=== PATIENT | male | born 1975 | race Caucasian/White ===

== ENCOUNTER 2016-04-06 16:19 | Emergency (ER) | payer OTHER ==
[~2016-04-06] VITALS: Wt 74.5 kg
[~2016-04-06 16:19] MED LIST: BACTDS PO; CEPH-443 PO; IBUP-1542 PO; ULT50 PO
--- NOTE | 2016-04-06 17:44 | ERD ---
ER Documentation Chief Complaint Date/Time DATE: 04/06/16 TIME: 17:42 Chief Complaint WOUND RECHECK ON ABCESS I&D RIGHT AXILA HPI This is a 40-year-old male with a past medical history of MRSA infection presents to the ED for a wound check. Patient hasn't filled his prescription for antibiotics and is taking it consistently. States that the ibuprofen and tramadol is helping with his pain. States that the swelling and redness is improving. Denies any fever, chills, abdominal pain, nausea, vomiting, loss of sensation, loss of range of motion. ROS All systems reviewed and are negative except as per history of present illness. Medications Home Meds Active Scripts Tramadol HCl (Tramadol HCl) 50 Mg Tablet, 50 MG PO Q6 Y for PAIN, #20 TAB Prov:PEDRITO CORDON NP 04/04/16 Ibuprofen* (Motrin*) 600 Mg Tab, 600 MG PO Q6H Y for PAIN AND OR ELEVATED TEMP, #30 TAB Prov:PEDRITO CORDON NP 04/04/16 Cephalexin* (Keflex*) 500 Mg Capsule, 500 MG PO QID for 10 Days, CAP Prov:PEDRITO CORDON NP 04/04/16 Sulfamethoxazole-Trimethoprim* (Bactrim* DS) 800-160 Mg Tab, 1 TAB PO BID for 10 Days, TAB Prov:PEDRITO CORDON NP 04/04/16 Sulfamethoxazole-Trimethoprim* (Bactrim* DS) 800-160 Mg Tab, 1 TAB PO BID for 10 Days, TAB Prov:MONROE MARRUFO PA-C 02/05/16 Allergies Allergies: Coded Allergies: No Known Allergy (Unverified , 02/07/16) PMhx/Soc History of Surgery: Yes (hernia repair) Anesthesia Reaction: No Hx Neurological Disorder: No Hx Respiratory Disorders: Yes (ASTHMA) Hx Cardiac Disorders: No Hx Psychiatric Problems: No Hx Miscellaneous Medical Probl: Yes (HEP B) Hx Alcohol Use: No (DENIES) Hx Substance Use: Yes (meth use LAST 04/03) Hx Tobacco Use: Yes (1/2PACK PER DAY) Physical Exam Vitals Vital Signs Date Time Temp Pulse Resp B/P Pulse Ox O2 Delivery O2 Flow Rate FiO2 04/06/16 16:22 97.4 89 18 147/89 99 Physical Exam Const: [id number], well-nourished. In no acute distress. Head: Atraumatic, normocephalic Eyes: Normal Conjunctiva without injection ENT: Normal external ear, nose and mouth. Neck: Full range of motion. No meningismus. Resp: Clear to auscultation bilaterally. No wheezing, rhonchi, rales, or crackles. No accessory muscle use. No retractions. Cardio: Regular rate and rhythm, no murmurs Skin: No petechiae or rashes Back: No midline tenderness. No CVA tenderness. Ext: No cyanosis, or edema. 2 cm x 2 cm erythema with no induration and fluctuance with a 1 cm incision of right axilla. No packing noted as patient removed it. No purulent discharge. No lymphatic streaking. Cap refill less than 2 seconds. Distal pulses intact bilaterally. Neur: Awake and alert. Normal gait and coordination. Muscle strength 5/5. Sensation intact bilaterally. Psych: Normal Mood and Affect Procedures/MDM This is a 40-year-old male with a past history of MRSA infection presents the ED for a wound check. Patient is afebrile and nontoxic-appearing. Patient has normal vital signs. Patient's abscess is healing appropriately. No indication for repacking at this time. Low suspicion for sepsis, cellulitis, necrotizing fascitis, or other emergent conditions. Follow up with primary care physician in 1-2 days. Instructed patient to return to the ED sooner for any worsening symptoms. Patient's questions were answered. Patient understood and agreed with discharge plan. Patient discharged stable. Departure Diagnosis: Primary Impression: Encounter for wound re-check Condition: Stable Patient Instructions: Abscess Drainage Referrals: MELISSA AUSTIN (PCP) [facility] YOU HAVE RECEIVED A MEDICAL SCREENING EXAM AND THE RESULTS INDICATE THAT YOU DO NOT HAVE A CONDITION THAT REQUIRES URGENT TREATMENT IN THE EMERGENCY DEPARTMENT. FURTHER EVALUATION AND TREATMENT OF YOUR CONDITION CAN WAIT UNTIL YOU ARE SEEN IN YOUR DOCTORS OFFICE WITHIN THE NEXT 1-2 DAYS. IT IS YOUR RESPONSIBILITY TO MAKE AN APPOINTMENT FOR FOLOW-UP CARE. IF YOU HAVE A PRIMARY DOCTOR --you should call your primary doctor and schedule an appointment IF YOU DO NOT HAVE A PRIMARY DOCTOR YOU CAN CALL OUR PHYSICIAN REFERRAL HOTLINE AT IF YOU CAN NOT AFFORD TO SEE A PHYSICIAN YOU CAN CHOSE FROM THE FOLLOWING [facility] CLINICS [facility] [address] [place] [facility] [address] [place] [facility] [address] [facility] [address] [facility] [address] [facility]. [facility]. [address] [facility] [facility] YOU HAVE RECEIVED A MEDICAL SCREENING EXAM AND THE RESULTS INDICATE THAT YOU DO NOT HAVE A CONDITION THAT REQUIRES URGENT TREATMENT IN THE EMERGENCY DEPARTMENT. FURTHER EVALUATION AND TREATMENT OF YOUR CONDITION CAN WAIT UNTIL YOU ARE SEEN IN YOUR DOCTORS OFFICE WITHIN THE NEXT 1-2 DAYS. IT IS YOUR RESPONSIBILITY TO MAKE AN APPOINTMENT FOR FOLOW-UP CARE. IF YOU HAVE A PRIMARY DOCTOR --you should call your primary doctor and schedule and appointment IF YOU DO NOT HAVE A PRIMARY DOCTOR YOU CAN CALL OUR PHYSICIAN REFERRAL HOTLINE AT . IF YOU CAN NOT AFFORD TO SEE A PHYSICIAN YOU CAN CHOSE FROM THE FOLLOWING [facility] INSTITUTIONS: [facility] [address] [place] [address] [facility] [address] [place] [address] [facility] [address] [place] [address] [facility] URGENT CARE/SPECIALTIES Additional Instructions: FOLLOW UP WITH YOUR PRIMARY CARE PHYSICIAN TOMORROW.Return to this facility if you are not improving as expected. ARNOLDO KURTZ PA-C Apr 06, 2016 17:44
== END 2016-04-06 19:07 | disposition home or self-care (01) ==
LOC: E/R 16:19
DX: Z48.01 Encounter for change or removal of surgical wound dressing (principal); J45.909 Unspecified asthma, uncomplicated; F17.210 Nicotine dependence, cigarettes, uncomplicated
CPT/HCPCS: 99281

== ENCOUNTER 2016-06-13 06:37 | Emergency (ER) | payer OTHER ==
[~2016-06-13] VITALS: Wt 73.6 kg
[~2016-06-13 06:37] MED LIST changes: +TRAM50TA2 PO; -ULT50 PO
[2016-06-13] MEDS ORDERED: CLINDAMYCIN 300 MG INJ IM ONE (08:00)
[2016-06-13] MEDS ORDERED: CLIN-73 PO (08:12)
[2016-06-13] MEDS ORDERED: TRAM50TA2 PO (08:13)
[2016-06-13] MEDS ORDERED: IBUP-1542 PO (08:13)
--- NOTE | 2016-06-13 08:20 | ERD ---
ER Documentation Chief Complaint Date/Time DATE: 06/13/16 TIME: 08:15 Chief Complaint neck swelling for the past few days. no drainage no fevers HPI This is a 40-year-old male that presents to the ER with neck pain for the last 5 days. Patient has a past medical history of recurrent abscesses over the last few months. Patient has developed a new abscess on the back of the neck. Patient states that it is very painful. He did have a fever earlier today and last night. Patient states that he took pain medications and that this helped with the pain. Patient denies any drainage from the abscess. Denies any cough or cold symptoms. He denies any chest pain or shortness of breath. ROS 12 point review of systems was done, all negative except per HPI. Medications Home Meds Active Scripts Ibuprofen* (Motrin*) 600 Mg Tab, 600 MG PO Q6, #30 TAB Prov:BETTINA DEMARCO 06/13/16 Tramadol HCl (Tramadol HCl) 50 Mg Tablet, 50 MG PO Q4 Y for PAIN, #20 TAB Prov:BETTINA DEMARCO 06/13/16 Clindamycin Hcl* (Clindamycin Hcl*) 300 Mg Capsule, 300 MG PO TID for 10 Days, CAP Prov:NILAMBETTINA CAZARES C 06/13/16 Tramadol HCl (Tramadol HCl) 50 Mg Tablet, 50 MG PO Q6 Y for PAIN, #20 TAB Prov:PEDRITO CORDON NP 04/04/16 Ibuprofen* (Motrin*) 600 Mg Tab, 600 MG PO Q6H Y for PAIN AND OR ELEVATED TEMP, #30 TAB Prov:PEDRITO CORDON NP 04/04/16 Cephalexin* (Keflex*) 500 Mg Capsule, 500 MG PO QID for 10 Days, CAP Prov:PEDRITO CORDON NP 04/04/16 Sulfamethoxazole-Trimethoprim* (Bactrim* DS) 800-160 Mg Tab, 1 TAB PO BID for 10 Days, TAB Prov:PEDRITO CORDON NP 04/04/16 Sulfamethoxazole-Trimethoprim* (Bactrim* DS) 800-160 Mg Tab, 1 TAB PO BID for 10 Days, TAB Prov:MONROE MARRUFO PA-C 02/05/16 Allergies Allergies: Coded Allergies: No Known Allergy (Unverified , 02/07/16) PMhx/Soc History of Surgery: Yes (hernia repair) Anesthesia Reaction: No Hx Neurological Disorder: No Hx Respiratory Disorders: Yes (ASTHMA) Hx Cardiac Disorders: No Hx Psychiatric Problems: No Hx Miscellaneous Medical Probl: Yes (HEP B) Hx Alcohol Use: No (DENIES) Hx Substance Use: Yes (meth use LAST 04/03) Hx Tobacco Use: Yes (1/2PACK PER DAY) Smoking Status: Never smoker Physical Exam Vitals Vital Signs Date Time Temp Pulse Resp B/P Pulse Ox O2 Delivery O2 Flow Rate FiO2 06/13/16 06:39 98.6 94 20 154/88 97 Physical Exam GENERAL: The patient is well developed and appropriate for usual state of health , in no apparent distress. HEENT: Atraumatic. NECK: C-spine is soft and supple. There is no cervical lymphadenopathy. CHEST: Clear to auscultation bilaterally. There are no rales, wheezes or rhonchi. HEART: Regular rate and rhythm. No murmurs, clicks, rubs or gallops. NEURO: Alert and oriented. SKIN: There is a 5 cm x 6 cm area of induration on the posterior neck that is erythematous, warm to the touch and tender to palpation. Results 24 hrs Current Medications Medications (Trade) Dose Ordered Sig/Carley Route PRN Reason Start Time Stop Time Status Last Admin Dose Admin Clindamycin Phosphate (Cleocin) 300 mg ONCE ONCE IM 06/13/16 08:00 06/13/16 08:01 DC 06/13/16 07:52 Procedures/MDM This is a 40-year-old male that presents to the ER for an abscess on his neck. Patient has had many abscesses over the last 4 months which have drained on their own. Patient's abscess however is indurated and is not ready for incision and drainage at this time. Because abscess is fairly large and patient did have a fever at home he will be given a shot of clindamycin. Patient got a dose of clindamycin in the ER without any complications. Patient will be sent home with clindamycin. He was told to apply warm compresses to the area. Patient is to follow-up with his primary care doctor within 1-2 days or return to ER sooner if symptoms worsen. My medical decision making was shared with the patient he understands and agrees with plan. Departure Diagnosis: Primary Impression: Abscess Condition: Stable Patient Instructions: Abscess, Antiobiotic Treatment Only Additional Instructions: Call your primary care doctor TOMORROW for an appointment during the next 1-2 days.See the doctor sooner or return here if your condition worsens before your appointment time. BETTINA DEMARCO Jun 13, 2016 08:20
== END 2016-06-13 08:19 | disposition home or self-care (01) ==
LOC: FTE 06:37
DX: L02.11 Cutaneous abscess of neck (principal); J45.909 Unspecified asthma, uncomplicated; F17.210 Nicotine dependence, cigarettes, uncomplicated
CPT/HCPCS: 96372; Z7502; Z7610

== ENCOUNTER 2016-08-22 15:48 | Emergency (ER) | payer OTHER ==
[~2016-08-22] VITALS: Ht 182.9 cm; Wt 78.0 kg
[~2016-08-22 15:48] MED LIST changes: +CLIN-73 PO
[2016-08-22 15:53] VITALS: Ht 182.9 cm; Wt 78.0 kg
[2016-08-22] MEDS ORDERED: DOXY100T20 PO (17:08)
[2016-08-22] MEDS ORDERED: BEN25 PO (17:09)
[2016-08-22] MEDS ORDERED: TR1B60 TOP (17:09)
[2016-08-22] MEDS ORDERED: NAPR-260 PO (17:11)
--- NOTE | 2016-08-22 17:20 | ERD ---
ER Documentation Chief Complaint Date/Time DATE: 08/22/16 TIME: 17:17 Chief Complaint skin rashes and itchiness all over the body HPI Patient is a 40-year-old male with a past medical history of hepatitis B who presents to the ED with a generalized rash that is itchy and slightly painful. Patient states that he used a new soap detergent at home and developed a rash. Never had this type of rash before in the past. He also states that he has multiple "staph infections". He states that he has taken antibiotics in the past. He states that he uses meth amphetamines and other drugs. He denies fever or chills. He denies chest pain, cough, shortness of breath or difficulty breathing. Denies abdominal pain, nausea, vomiting or diarrhea. Denies any other complaints. ROS All systems reviewed and are negative except as per history of present illness. Medications Home Meds Active Scripts Naproxen* (Naprosyn*) 500 Mg Tablet, 500 MG PO BID Y for PAIN AND/OR INFLAMMATION, #30 TAB Prov:DENA TINEO PA-C 08/22/16 Triamcinolone Acetonide (Triamcinolone Acetonide) 0.1% - 60 Ml Lotion, 1 APPLIC TOP BID, #1 BOTTLE Prov:DENA TINEO PA-C 08/22/16 Diphenhydramine Hcl* (Benadryl*) 25 Mg Cap, 25 MG PO Q6, #30 CAP Prov:DENA TINEOC 08/22/16 Doxycycline Hyclate* (Doxycycline Hyclate*) 100 Mg Tablet.dr, 100 MG PO BID for 10 Days, TAB Prov:DENA TINEO-C 08/22/16 Ibuprofen* (Motrin*) 600 Mg Tab, 600 MG PO Q6, #30 TAB Prov:NILAMBETTINA CAZARES 06/13/16 Tramadol HCl (Tramadol HCl) 50 Mg Tablet, 50 MG PO Q4 Y for PAIN, #20 TAB Prov:BETTINA DEMARCO 06/13/16 Clindamycin Hcl* (Clindamycin Hcl*) 300 Mg Capsule, 300 MG PO TID for 10 Days, CAP Prov:NILAMBETTINA CAZARES 06/13/16 Tramadol HCl (Tramadol HCl) 50 Mg Tablet, 50 MG PO Q6 Y for PAIN, #20 TAB Prov:MAHNAZPEDRITO VIRK MOLD SHAKER 04/04/16 Ibuprofen* (Motrin*) 600 Mg Tab, 600 MG PO Q6H Y for PAIN AND OR ELEVATED TEMP, #30 TAB Prov:RILEYPEDRITO CANDELARIO. MOLD SHAKER 04/04/16 Cephalexin* (Keflex*) 500 Mg Capsule, 500 MG PO QID for 10 Days, CAP Prov:PEDRITO CORDON. MOLD SHAKER 04/04/16 Sulfamethoxazole-Trimethoprim* (Bactrim* DS) 800-160 Mg Tab, 1 TAB PO BID for 10 Days, TAB Prov:RILEYISPEDRITO VIRK. MOLD SHAKER 04/04/16 Sulfamethoxazole-Trimethoprim* (Bactrim* DS) 800-160 Mg Tab, 1 TAB PO BID for 10 Days, TAB Prov:MONROE MARRUFO PA-C 02/05/16 Allergies Allergies: Coded Allergies: No Known Allergy (Unverified , 02/07/16) PMhx/Soc History of Surgery: Yes (hernia repair) Anesthesia Reaction: No Hx Neurological Disorder: No Hx Respiratory Disorders: Yes (ASTHMA) Hx Cardiac Disorders: No Hx Psychiatric Problems: No Hx Miscellaneous Medical Probl: Yes (HEP B) Hx Alcohol Use: No (DENIES) Hx Substance Use: Yes (meth use LAST 04/03) Hx Tobacco Use: Yes (1/2PACK PER DAY) Smoking Status: Current every day smoker Physical Exam Vitals Vital Signs Date Time Temp Pulse Resp B/P Pulse Ox O2 Delivery O2 Flow Rate FiO2 08/22/16 15:53 98.4 75 19 139/76 100 Physical Exam GENERAL: Well-developed, well-nourished male. Appears in no acute distress. HEAD: Normocephalic, atraumatic. EYES: Pupils are equally reactive bilaterally. EOMs grossly intact. No conjunctival erythema. ENT: Moist mucous membranes. No uvula deviation. No kissing tonsils. No exudates. NECK: Supple. No lymphadenopathy or thyromegaly. No meningismus. negative kernig. negative brudinski. LUNG: Clear to auscultation bilaterally. No rhonchi, wheezing, rales or coarse breath sounds. HEART: Regular rate and rhythm. No murmurs, rubs or gallops. Extremities: Equal pulses bilaterally. No peripheral clubbing, cyanosis or edema. No unilateral leg swelling. NEUROLOGIC: Alert and oriented. Moving all four extremities. 5/5 strength in all extremities. Normal speech. Steady gait. SKIN: Normal color. Warm and dry. Multiple erythematous rash on abdomen, legs and arms. No wheals. No streaking. Multiple crusted lesions on back neck and arms. Multiple track mejia visible. No warmth or edema. Capillary refill < 2 seconds Procedures/MDM ER COURSE: I kept the patient and/or family informed of laboratory and diagnostic imaging results throughout the emergency room course. MEDICAL DECISION MAKING: This is a 40-year-old male who presents with rash. Vital signs were reviewed. Patient is afebrile. Patient is not hypoxic. Patient is not toxic or ill- appearing. Patient likely has rash of unknown etiology, likely allergic reaction due to the change in soap. Patient also has multiple crusted over lesions likely early cellulitis. Low suspicion for necrotizing fasciitis, SJS, toxic epidermal necrolysis, Kawasaki, erythema multiforme, gangrene, scarlet fever, meningococcemia, sepsis, anaphylaxis, sepsis, deep space infection, or foreign body. At this point I do not think patient needs to be admitted or to receive IV antibiotics. DISCHARGE: At this time, patient is stable for discharge and outpatient management with no new complaints during the ER course. Patient was sent home with doxycycline, Benadryl, Naprosyn and triamcinolone cream. Patient will be discharged home with instructions to recheck for new or worsening symptoms such as fever, nausea , weakness, LOC and to follow up with primary care in the next 1-2 days. Patient was advised to return to the ER for any new or worsening symptoms. Plan was discussed and patient and/or family understands and agrees. Home instructions were given. Departure Diagnosis: Primary Impression: Rash Condition: Stable Patient Instructions: Self-Care for Skin Rashes, Treating Drug Abuse and Addiction Additional Instructions: Call your primary care doctor TOMORROW for an appointment during the next 1-2 days.See the doctor sooner or return here if your condition worsens before your appointment time. DENA TINEO PA-C August 22, 2016 17:20
== END 2016-08-22 17:17 | disposition home or self-care (01) ==
LOC: FTE 15:48
DX: R21 Rash and other nonspecific skin eruption (principal); J45.909 Unspecified asthma, uncomplicated; F17.210 Nicotine dependence, cigarettes, uncomplicated
CPT/HCPCS: 99284

== ENCOUNTER 2016-09-29 14:17 | Emergency (ER) | payer OTHER ==
[~2016-09-29] VITALS: Wt 72.5 kg
[~2016-09-29 14:17] MED LIST changes: +BEN25 PO; +DOXY100T20 PO; +NAPR-260 PO; +TR1B60 TOP
[2016-09-29] MEDS ORDERED: SULF1TAB31 PO (14:52)
[2016-09-29] MEDS ORDERED: MUPI22OI2 TOP (14:52)
[2016-09-29] MEDS ORDERED: CEPH-443 PO (14:52)
--- NOTE | 2016-09-29 15:24 | ERD ---
ER Documentation Chief Complaint Date/Time DATE: 09/29/16 TIME: 15:21 Chief Complaint RASH, BLISTERS, ABCESS ON CHEST/NECK/ARMS, ONSET SEVERAL YEARS HPI 41-year-old male with history of multiple staph infections, due to drug abuse comes to emergency room with multiple areas of erythema, and "staph infection". He states that he has been treated multiple times, the last time was about 4- 5 months ago. The last time he was seen he was prescribed doxycycline. He also states that most of the time he has responded to antibiotics, is not been hospitalized recently. He denies any fevers or chills. ROS All systems reviewed and are negative except as per history of present illness. Medications Home Meds Active Scripts Sulfamethoxazole/Trimethoprim* (Bactrim Ds* Tablet) 1 Each Tablet, 1 TAB PO BID , #20 TAB Prov:MARLENI TROY PA-C 09/29/16 Mupirocin* (Bactroban*) 2% -22 Gram Oint...g., 1 APPLIC TOP BID for 7 Days, EA Prov:MARLENI TROY PA-C 09/29/16 Cephalexin* (Keflex*) 500 Mg Capsule, 500 MG PO QID for 10 Days, CAP Prov:MARLENI TROY PA-C 09/29/16 Naproxen* (Naprosyn*) 500 Mg Tablet, 500 MG PO BID Y for PAIN AND/OR INFLAMMATION, #30 TAB Prov:DENA TINEO PA-C 08/22/16 Triamcinolone Acetonide (Triamcinolone Acetonide) 0.1% - 60 Ml Lotion, 1 APPLIC TOP BID, #1 BOTTLE Prov:DNEA TINEO PA-C 08/22/16 Diphenhydramine Hcl* (Benadryl*) 25 Mg Cap, 25 MG PO Q6, #30 CAP Prov:DENA TINEO PA-C 08/22/16 Doxycycline Hyclate* (Doxycycline Hyclate*) 100 Mg Tablet.dr, 100 MG PO BID for 10 Days, TAB Prov:DENA TINEO PA-C 08/22/16 Ibuprofen* (Motrin*) 600 Mg Tab, 600 MG PO Q6, #30 TAB Prov:BETTINA DEMARCO 06/13/16 Tramadol HCl (Tramadol HCl) 50 Mg Tablet, 50 MG PO Q4 Y for PAIN, #20 TAB Prov:BETTINA DEMARCO 06/13/16 Clindamycin Hcl* (Clindamycin Hcl*) 300 Mg Capsule, 300 MG PO TID for 10 Days, CAP Prov:BETTINA DEMARCO C 06/13/16 Tramadol HCl (Tramadol HCl) 50 Mg Tablet, 50 MG PO Q6 Y for PAIN, #20 TAB Prov:PEDRITO CORDON WARD MAID 04/04/16 Ibuprofen* (Motrin*) 600 Mg Tab, 600 MG PO Q6H Y for PAIN AND OR ELEVATED TEMP, #30 TAB Prov:RILEYISIAPEDRITO WARD MAID 04/04/16 Cephalexin* (Keflex*) 500 Mg Capsule, 500 MG PO QID for 10 Days, CAP Prov:RILEYISIAPEDRITO WARD MAID 04/04/16 Sulfamethoxazole-Trimethoprim* (Bactrim* DS) 800-160 Mg Tab, 1 TAB PO BID for 10 Days, TAB Prov:PEDRITO CORDON WARD MAID 04/04/16 Sulfamethoxazole-Trimethoprim* (Bactrim* DS) 800-160 Mg Tab, 1 TAB PO BID for 10 Days, TAB Prov:MONROE MARRUFO PA-C 02/05/16 Allergies Allergies: Coded Allergies: No Known Allergy (Unverified , 02/07/16) PMhx/Soc History of Surgery: Yes (hernia repair) Anesthesia Reaction: No Hx Neurological Disorder: No Hx Respiratory Disorders: Yes (ASTHMA) Hx Cardiac Disorders: No Hx Psychiatric Problems: No Hx Miscellaneous Medical Probl: Yes (HEP B) Hx Alcohol Use: No (DENIES) Hx Substance Use: Yes (meth use LAST 04/03) Hx Tobacco Use: Yes (1/2PACK PER DAY) Physical Exam Vitals Vital Signs Date Time Temp Pulse Resp B/P Pulse Ox O2 Delivery O2 Flow Rate FiO2 09/29/16 14:21 98.2 103 17 147/87 98 Physical Exam General: Well-developed, well-nourished. The patient appears in no acute distress. HEENT: Head is normocephalic, atraumatic. No scleral icterus. Neck: Supple. Nontender. Lungs: Clear to auscultation. Normal air movement. Heart: Regular rate and rhythm. S1 and S2 are normal. No murmurs, gallops, or rubs. Abdomen: Nondistended. Extremities: No clubbing or cyanosis. Moving extremities x 4. No weakness. Neurologic: Alert and oriented 3. No focal deficits. Normal speech and gait. Skin: Multiple small pustules, abscesses across the abdomen, neck. Procedures/MDM 41-year-old male comes in with what appears to be likely staph infection, I do agree with the patient given the presentation as well as his history of drug abuse. He does not have any systemic concerns, no fevers or chills. I doubt any deep space infection, and therefore patient is appropriate for outpatient management at this time. He will be given Bactroban to apply topically to the areas where he is been scratching, and will be given Keflex and Bactrim. He was advised to follow-up with his primary care physician for recheck wound in 2 days. Departure Diagnosis: Primary Impression: Abscess Additional Impression: Cellulitis Condition: Good Patient Instructions: Cellulitis MARLENI TROY PA-C Sep 29, 2016 15:24
== END 2016-09-29 15:39 | disposition home or self-care (01) ==
LOC: FTE 14:17
DX: L02.211 Cutaneous abscess of abdominal wall (principal); L02.11 Cutaneous abscess of neck; L03.90 Cellulitis, unspecified; J45.909 Unspecified asthma, uncomplicated; F17.210 Nicotine dependence, cigarettes, uncomplicated
CPT/HCPCS: 99284

== ENCOUNTER 2018-03-17 21:36 | Emergency (ER) | END 2018-03-18 02:00 | disposition home or self-care (01) ==

== ENCOUNTER 2018-11-28 03:06 | Emergency (ER) | payer OTHER ==
[~2018-11-28] VITALS: Ht 170.2 cm; Wt 76.8 kg
[~2018-11-28 03:06] MED LIST changes: -CLIN-73 PO; +CLIN300C10 PO; +FAMO-96 PO; +IBUP800T48 PO; +LORA10TA3 PO; +MUPI22OI2 TOP; -NAPR-260 PO; +NAPR-985 PO; +SULF1TAB31 PO
[2018-11-28 03:08] VITALS: Ht 170.2 cm; Wt 76.8 kg
[2018-11-28] MEDS ORDERED: DIPHENHYDRAMINE 25 MG CAP PO ONE (04:00)
[2018-11-28] MEDS ORDERED: TRIMETHOPRIM/SULFAMETHOX (DS) TAB PO ONE (04:00)
[2018-11-28] MEDS ORDERED: DEXAMETHASONE 10 MG/ML 1 ML INJ IM ONE (04:00)
[2018-11-28] MEDS ORDERED: FAMOTIDINE 20 MG TAB PO ONE (04:00)
[2018-11-28] MEDS ORDERED: CEFTRIAXONE 1 GM INJ IM ONE (04:00)
[2018-11-28 04:12] VITALS: BP 134/78; PULSE 98; RESP 20
== END 2018-11-28 04:12 | disposition home or self-care (01) ==
LOC: FTE 03:06
DX: L01.00 Impetigo, unspecified (principal); J45.909 Unspecified asthma, uncomplicated; F17.210 Nicotine dependence, cigarettes, uncomplicated; L50.9 Urticaria, unspecified; L08.9 Local infection of the skin and subcutaneous tissue, unspecified
CPT/HCPCS: J0696; J1100; Z7610; 96372